=== PATIENT | male | born 1960 | race Caucasian/White ===

== ENCOUNTER 2023-09-20 21:36 | Inpatient (IN) | payer BC, OTHER ==
[~2023-09-20] VITALS: Ht 180.3 cm; Wt 108.9 kg
[~2023-09-20 21:36] MED LIST: LEVOTHYROXINE100 MC1 PO
[2023-09-20 22:16] LABS: BASOPHILS % 0.4 % (0.0-1.0); EOSINOPHILS # (AUTO) 0.2 (0.0-0.4); EOSINOPHILS % 2.1 % (0.0-6.0); HEMATOCRIT 41.7 % (38.2-49.6); HEMOGLOBIN 14.1 g/dL (14.0-18.0); LYMPHOCYTES # (AUTO) 1.5 (1.0-3.2); LYMPHOCYTES % 21.2 % (18.0-39.1); MEAN CORPUSCULAR HEMOGLOBIN 29.7 pg (28-32); MEAN CORPUSCULAR HGB CONC 33.8 g/dL (31-35); MONOCYTES # (AUTO) 0.5 (0.2-0.8); MONOCYTES % 7.1 % (4.4-11.3); NEUTROPHILS # (AUTO) 4.9 (2.1-6.9); NEUTROPHILS % 68.6 % (38.7-80.0); PLATELET COUNT 176 x10e3/uL (140-360); RED BLOOD COUNT 4.74 x10e6/uL (4.3-5.7); RED CELL DISTRIBUTION WIDTH 13.6 % (11.7-14.4); WHITE BLOOD COUNT 7.09 x10e3/uL (4.8-10.8)
[2023-09-20 22:28] LABS: COLOR,URINE AMBER (YELLOW)
[2023-09-20 22:29] LABS: BILIRUBIN,URINE NEGATIVE (NEGATIVE); CLARITY,URINE SL CLOUDY (CLEAR); GLUCOSE, URINE 1+ (NEGATIVE); KETONES,URINE TRACE (NEGATIVE); LEUKOCYTE ESTERASE ,URINE NEGATIVE (NEGATIVE); NITRITE,URINE NEGATIVE (NEGATIVE); PH,URINE 5.5 (5 - 7); PROTEIN,URINE DIPSTICK 1+ (NEGATIVE); URINE UROBILINOGEN 0.2 mg/dL (0.2 - 1)
[2023-09-20 22:30] LABS: BACTERIA,URINE FEW /HPF; EPITHELIAL CELLS,URINE FEW /LPF; RBC,URINE >50 /HPF (0-5); WBC,URINE (MAN) 0-5 /HPF (0-5)
[2023-09-20 22:34] LABS: ALBUMIN 3.7 g/dL (3.5-5.0); ALBUMIN/GLOBULIN RATIO 1.2 (0.8-2.0); ANION GAP 14.2 mmol/L (8-16); BILIRUBIN,TOTAL 0.8 mg/dL (0.2-1.2); CALCIUM 9.4 mg/dL (8.4-10.2); CREATININE, SERUM 1.2 mg/dL (0.72-1.25); POTASSIUM 4.2 mmol/L (3.5-5.1); TOTAL PROTEIN 6.7 g/dL (6.5-8.1)
[2023-09-20] MEDS ORDERED: IOPAMIDOL 370 MG/ML 100 ML INFUS..BTL INJ ONE (22:52)
[2023-09-20] MEDS ORDERED: SODIUM CHLORIDE 0.9% 200 ML ONE (22:53)
[2023-09-20] MEDS: KETOROLAC TROMETHAMINE 30 MG/ML VIAL IV STA (23:14)
[2023-09-21] VITALS (10 sets, daily range): BP systolic 122–154; BP diastolic 72–88; PULSE 70–92; RESP 17–18; TEMP 97.7–98.3; O2SAT 94–99
[2023-09-21] MEDS: ONDANSETRON HCL INJ 2MG/ML 2ML 2 MG/ML VIAL IV STA (00:47)
[2023-09-21] MEDS: Morphine 4mg INJECTION 4 MG/ML INJ IV ONE (00:48)
[2023-09-21] MEDS: SODIUM CHLORIDE 0.9% 1000ML 1,000 ML IV SCH (03:06)
[2023-09-21] MEDS ORDERED: METFORMIN HCL500 MG PO (03:40)
[2023-09-21] MEDS ORDERED: METOPROLOL SUCC25 MG PO (03:40)
[2023-09-21] MEDS ORDERED: CLOBETASOL PROP15 G1 TOP (03:40)
[2023-09-21] MEDS ORDERED: MULTI-VITAMIN1 EACH PO (03:40)
[2023-09-21] MEDS ORDERED: MONTELUKAST SOD10 MG PO (03:40)
[2023-09-21] MEDS ORDERED: ASPIRIN81 MG PO (03:40)
[2023-09-21] MEDS ORDERED: OMEGA-31000 MG PO (03:40)
[2023-09-21] MEDS ORDERED: LIPITOR20 MG PO (03:40)
[2023-09-21] MEDS: Morphine 4mg INJECTION 4 MG/ML INJ IV PRN (09:12)
[2023-09-21] MEDS ORDERED: HYDRALAZINE HCL 20 MG/ML VIAL IV PRN (11:15)
[2023-09-21] MEDS ORDERED: POLYETHYLENE GLYCOL 3350 17 GM PACK PO PRN (11:15)
[2023-09-21] MEDS ORDERED: ACETAMINOPHEN 325 MG TAB PO PRN (11:15)
[2023-09-21] MEDS: HYDROMORPHONE 1MG/1ML INJ IV STA (11:50)
[2023-09-21 12:03] LABS: MAGNESIUM 1.9 MG/DL (1.3-2.1); PHOSPHORUS 4.1 MG/DL (2.3-4.7)
[2023-09-21 12:25] LABS: FREE T4 (FREE THYROXINE) 1.13 ng/dL (0.8-1.8); THYROID STIMULATING HORMONE 1.198 uIU/mL (0.350-4.940)
[2023-09-21] MEDS: DOCUSATE SODIUM 100 MG CAP PO SCH (17:11)
[2023-09-21] MEDS: HYDROMORPHONE 1MG/1ML INJ IV PRN (17:14)
[2023-09-21] MEDS: ONDANSETRON HCL INJ 2MG/ML 2ML 2 MG/ML VIAL IV PRN (17:16)
[2023-09-21] MEDS ORDERED: FENTANYL 12MCG/HR PATCH TD SCH (18:00)
[2023-09-21] MEDS ORDERED: NALOXONE HCL INJ 0.4 MG/ML AMP IV PRN (18:15)
[2023-09-21] MEDS: FENTANYL 12MCG/HR PATCH TD SCH (21:35)
[2023-09-22] VITALS (8 sets, daily range): BP systolic 129–143; BP diastolic 75–77; PULSE 70–90; RESP 17–22; TEMP 97.3–98.5; O2SAT 95–98
[2023-09-22] MEDS: HYDROCODONE/APAP 5MG-325MG TAB PO PRN (03:23)
[2023-09-22 05:57] LABS: BASOPHILS % 0.2 % (0.0-1.0); EOSINOPHILS # (AUTO) 0.2 (0.0-0.4); EOSINOPHILS % 1.7 % (0.0-6.0); HEMATOCRIT 41.5 % (38.2-49.6); HEMOGLOBIN 13.1 g/dL (14.0-18.0); LYMPHOCYTES # (AUTO) 1.4 (1.0-3.2); LYMPHOCYTES % 14.4 % (18.0-39.1); MEAN CORPUSCULAR HEMOGLOBIN 28.9 pg (28-32); MEAN CORPUSCULAR HGB CONC 31.6 g/dL (31-35); MEAN CORPUSCULAR VOLUME 91.4 fL (81-99); MONOCYTES # (AUTO) 0.7 (0.2-0.8); MONOCYTES % 7.3 % (4.4-11.3); NEUTROPHILS # (AUTO) 7.5 (2.1-6.9); NEUTROPHILS % 76.1 % (38.7-80.0); PLATELET COUNT 168 x10e3/uL (140-360); RED BLOOD COUNT 4.54 x10e6/uL (4.3-5.7); RED CELL DISTRIBUTION WIDTH 13.8 % (11.7-14.4)
[2023-09-22 06:35] LABS: ALBUMIN 3.4 g/dL (3.5-5.0); ALBUMIN/GLOBULIN RATIO 1.1 (0.8-2.0); BILIRUBIN,TOTAL 1.2 mg/dL (0.2-1.2); CALCIUM 9.1 mg/dL (8.4-10.2); CREATININE, SERUM 1.26 mg/dL (0.72-1.25); TOTAL PROTEIN 6.4 g/dL (6.5-8.1)
[2023-09-22 06:49] LABS: CHOL/HDL RATIO 4.3 (3.9-4.7)
[2023-09-22] MEDS: LEVOTHYROXINE SODIUM 75 MCG TAB PO SCH (07:35)
[2023-09-22] MEDS: Morphine 4mg INJECTION 4 MG/ML INJ IV PRN (08:13)
[2023-09-22] MEDS: FAMOTIDINE 20 MG/2 ML VIAL IV SCH (08:14)
[2023-09-22] MEDS: MULTIVITAMINS/MINERALS TAB PO SCH (08:24)
[2023-09-22] MEDS: OMEGA 3 POLYUNSAT FATTY ACIDS 1000 MG SOFTGEL PO SCH (08:24)
[2023-09-22] MEDS: MONTELUKAST SODIUM 10 MG TAB PO SCH (08:24)
[2023-09-22] MEDS: CLOBETASOL PROPIONATE 0.05% CRM 15 GM TUBE TOP SCH (09:00)
[2023-09-22] MEDS ORDERED: ACETAMINOPHEN 1000 MG/100 ML 100 ML IV ONE (09:16)
[2023-09-22] MEDS ORDERED: IOPAMIDOL 610MG/1ML 300 MG/ML VIAL IV ONE (09:18)
[2023-09-22] MEDS: METOPROLOL SUCCINATE 25 MG TAB XL PO SCH (12:18)
[2023-09-22] MEDS ORDERED: CEFTRIAXONE 1 GM VIAL ONE (14:02)
[2023-09-22] MEDS ORDERED: ONDANSETRON HCL INJ 2MG/ML 2ML 2 MG/ML VIAL ONE (14:02)
[2023-09-22] MEDS ORDERED: SEVOFLURANE INHAL SOLN 250 ML PEN BTL ONE (14:02)
[2023-09-22] MEDS ORDERED: PROPOFOL IV EMULSION 10 MG/ML 20 ML VIAL ONE (14:02)
[2023-09-22] MEDS ORDERED: LIDOCAINE HCL 2% LOCAL INJ 5 ML SDV VIAL INJ ONE (14:02)
[2023-09-22] MEDS ORDERED: DEXTROSE 50% SYRINGE 50 ML IV PRN (15:00)
[2023-09-22] MEDS: INSULIN LISPRO 100 UNIT/1 ML 3ML VIAL SQ SCH (16:30)
[2023-09-22] MEDS ORDERED: FENTANYL CITRATE/PF 100MCG/2 ML INJ ONE (16:37)
[2023-09-23] VITALS (11 sets, daily range): BP systolic 134–152; BP diastolic 71–87; PULSE 66–78; RESP 18–20; TEMP 97.1–98.3; O2SAT 92–97
[2023-09-23] MEDS ORDERED: DEXTROSE 50% SYRINGE 50 ML IV PRN (10:30)
[2023-09-23] MEDS: PHENAZOPYRIDINE HCL 100 MG TAB PO PRN (20:20)
[2023-09-23] MEDS: ATORVASTATIN 40 MG TAB PO SCH (20:20)
[2023-09-24 05:35] VITALS: BP 141/86; PULSE 68; RESP 16; TEMP 98; O2SAT 95
[2023-09-24 05:41] LABS: BASOPHILS % 0.5 % (0.0-1.0); EOSINOPHILS # (AUTO) 0.2 (0.0-0.4); EOSINOPHILS % 3.1 % (0.0-6.0); HEMATOCRIT 39.4 % (38.2-49.6); HEMOGLOBIN 12.6 g/dL (14.0-18.0); LYMPHOCYTES # (AUTO) 1.4 (1.0-3.2); LYMPHOCYTES % 22.4 % (18.0-39.1); MEAN CORPUSCULAR HEMOGLOBIN 29.1 pg (28-32); MONOCYTES # (AUTO) 0.5 (0.2-0.8); MONOCYTES % 8.5 % (4.4-11.3); NEUTROPHILS % 64.9 % (38.7-80.0); PLATELET COUNT 146 x10e3/uL (140-360); RED BLOOD COUNT 4.33 x10e6/uL (4.3-5.7); RED CELL DISTRIBUTION WIDTH 13.7 % (11.7-14.4)
[2023-09-24] MEDS ORDERED: LEVOTHYROXINE SODIUM 75 MCG TAB PO SCH (06:00)
[2023-09-24 06:10] LABS: ANION GAP 13.8 mmol/L (8-16); CALCIUM 8.9 mg/dL (8.4-10.2); CREATININE, SERUM 0.8 mg/dL (0.72-1.25); POTASSIUM 3.8 mmol/L (3.5-5.1)
[2023-09-24 07:14] VITALS: PULSE 82; RESP 18; O2SAT 98
[2023-09-24] MEDS: SOLIFENACIN SUCCINATE 5 MG TAB PO SCH (08:34)
[2023-09-24 08:37] VITALS: BP 147/71; PULSE 76; RESP 20; TEMP 98.6; O2SAT 95
[2023-09-24 08:45] VITALS: BP 147/71; PULSE 76; RESP 20; TEMP 98.6; O2SAT 95
[2023-09-24] MEDS ORDERED: ASPIRIN 81 MG CHEW TAB PO SCH (09:00)
[2023-09-24 11:56] VITALS: BP 150/84; PULSE 72; RESP 18; TEMP 98.6; O2SAT 97
[2023-09-24 16:53] VITALS: BP 152/77; PULSE 76; RESP 18; TEMP 97.6; O2SAT 95
[2023-09-24] MEDS ORDERED: ONDANSETRON HCL 4 MG ORAL DISINTEGRATING TAB PO PRN (18:00)
[2023-09-25] MEDS ORDERED: FAMOTIDINE 20 MG TAB PO SCH (09:00)
== END 2023-09-24 18:16 | disposition home or self-care (01) | DRG 661 ==
LOC: ER 22:23 → ERHOLD 09-21 02:18 → MED/SURG3 09-21 02:59 → OBSVTOIN 09-22 07:40
PROVIDERS: ADMIT Internal Medicine; ATTEND Internal Medicine
PROC: BT161ZZ Fluoroscopy of Right Ureter using Low Osmolar Contrast (ICD-10-PCS; 2023-09-22)
PROC: BT171ZZ Fluoroscopy of Left Ureter using Low Osmolar Contrast (ICD-10-PCS; 2023-09-22)
PROC: 0T778DZ Dilation of Left Ureter with Intraluminal Device, Via Natural or Artificial Opening Endoscopic (ICD-10-PCS; principal; 2023-09-22 09:47)
DX: N13.2 Hydronephrosis with renal and ureteral calculous obstruction (principal); E78.5 Hyperlipidemia, unspecified; E11.65 Type 2 diabetes mellitus with hyperglycemia; I25.10 Atherosclerotic heart disease of native coronary artery without angina pectoris; E03.9 Hypothyroidism, unspecified; R11.12 Projectile vomiting; T40.2X5A Adverse effect of other opioids, initial encounter; R06.89 Other abnormalities of breathing; N23 Unspecified renal colic; R31.9 Hematuria, unspecified; E66.9 Obesity, unspecified; R81 Glycosuria; Z68.33 Body mass index [BMI] 33.0-33.9, adult; L40.9 Psoriasis, unspecified; J30.2 Other seasonal allergic rhinitis; Z11.52 Encounter for screening for COVID-19; Z79.82 Long term (current) use of aspirin; Z79.84 Long term (current) use of oral hypoglycemic drugs; Z79.890 Hormone replacement therapy; Z88.0 Allergy status to penicillin; Z88.7 Allergy status to serum and vaccine; Z83.3 Family history of diabetes mellitus; Z82.49 Family history of ischemic heart disease and other diseases of the circulatory system; Z87.442 Personal history of urinary calculi; Z80.42 Family history of malignant neoplasm of prostate
CPT/HCPCS: 36415; 74018; 74178; 74420; 80048; 80053; 80061; 81001; 82948; 83036; 83735; 84100; 84439; 84443; 84550; 85025; 94799; 99252; 99284; C1758; C1769; C2617; G0378; J0696; J1170; J1885; J2001; J2270; J2405; J7030; J7050; Q9967; U0002